=== PATIENT | female | born 2000 | race Caucasian/White ===

== ENCOUNTER 2024-08-09 18:10 | Emergency (ER) | payer MEDICAID, SELFPAY ==
[2024-08-09 18:28] VITALS: BMI 26.6
[2024-08-09 18:31] VITALS: BP 150/93; PULSE 88; RESP 19; TEMP 37.5; O2SAT 98
--- NOTE | 2024-08-09 18:35 | PD.EDRME ---
Rapid Medical Screening Exam RME Arrival date/time: 08/09/24 18:10 23 year old female present to ED for c/o of nipple ring laceration I have greeted and performed a focused initial assessment of this patient. A comprehensive ED assessment and evaluation of the patient, analysis of all test results, and completion of the medical decision making process will be conducted by additional ED providers. Chief Complaint: General Adult/Misc Complain Vital signs: Vital Signs Temperature 99.5 F 08/09/24 18:31 Pulse Rate 88 08/09/24 18:31 Respiratory Rate 19 08/09/24 18:31 Blood Pressure 150/93 H 08/09/24 18:31 Pulse Oximetry (%) 98 08/09/24 18:31 Oxygen Delivery Method Room Air 08/09/24 18:31
--- NOTE | 2024-08-09 20:24 | EDNOTE_ITS ---
ED Wound/Laceration-RME/HPI General Chief Complaint: General Adult/Misc Complain Stated Complaint: RIPPED NIPPLE RING HALF WAY OUT Arrival date/time: 08/09/24 18:10 RME / HPI RME / HPI narrative: 08/09/24 18:10 23 year old female present to ED for c/o of nipple ring laceration I have greeted and performed a focused initial assessment of this patient. A comprehensive ED assessment and evaluation of the patient, analysis of all test results, and completion of the medical decision making process will be conducted by additional ED providers. DR DOMINGUEZ MAIN ED EVALUATION: 23-year-old female patient with pierced nipples complaining of catching her left nipple piercing on a door resulting in a laceration to her left nipple. States she did it this morning but did not have time to seek medical care until now. Related Data Previous Rx's ?Medication ?Instructions ?Recorded naproxen 500 mg tablet (Naprosyn) 500 mg PO BID PRN pain #30 tabs 09/28/20 Allergies Allergy/AdvReac Type Severity Reaction Status Date / Time No Known Allergies Allergy Verified 08/09/24 18:12 Course Course Course Narrative: Recommend patient remove piercing. Plan for wound irrigation, cleansing, and repair with skin adhesive. Procedure wound suture/repair Wound irrigated, cleansed, repaired with skin adhesive, steristrips applied, tolerated well, no complications Quality Measures none Vital Signs Vital signs: Vital Signs Temperature 99.5 F 08/09/24 18:31 Pulse Rate 88 08/09/24 18:31 Respiratory Rate 19 08/09/24 18:31 Blood Pressure 150/93 H 08/09/24 18:31 Pulse Oximetry (%) 98 08/09/24 18:31 Oxygen Delivery Method Room Air 08/09/24 18:31 Wound / Laceration MDM Narrative MDM Narrative:: 23 yo female patient with nipple piercing here for nipple laceration Patient data External records reviewed:: [facility] previous records Clinical information provided by:: patient Social determinants that could affect healthcare access:: none Patient has the following chronic illnesses:: none How is presenting disease/condition affected by chronic disease/condition?: no chronic disease Evaluation data The following diagnostics were reviewed and interpreted by me:: other (specify) (diagnostics not ordered) Lab and/or radiology exams considered but not ordered:: none Interpretation Summary: n/a Medications / Prescriptions Medications or Prescriptions considered but not ordered:: considered Rx antibiotic however wound is clean and there are no signs of infection Medication administrations:: none Consultations Consultation(s) initiated? (list below): No Diagnosis Wound Differential Diagnosis: laceration, abrasion and avulsion of skin Most likely diagnosis given after review of the tests above:: laceration Admission Indicated Admission indicated?: not indicated Admission Request Was there a request for admission?: No Disposition Plan Disposition Plan: Discharge Discharge Attestation Discharge Attestation: The patient and all family members were given an opportunity to ask questions and understood the discharge instructions. Discharge instructions specifically effects, indications for sooner follow up or return to the emergency department, and the expected course of current diagnosis. Patient condition: Stable Discharge Plan Plan Patient Disposition: HOME (Self Care) Prescriptions/Referrals Prescriptions/Med Rec: No Action naproxen [Naprosyn] 500 mg tablet 500 mg PO BID PRN (Reason: pain) Qty: 30 0RF Referrals: Sharath Trujillo MD [Primary Care Provider] - In 1 week Problem List Clinical Impression: Laceration of left breast, Fissure of left nipple Patient/Caregiver Discharge Instructions Education Materials: ED Laceration: Skin Adhesive Print Language: Russian Stand Alone Forms: [employer] Award Info., Patient Portal Info Letter
--- NOTE | 2024-08-09 20:56 | PC.NURSE ---
pt. presents with left nipple lac after nipple ring got caught and lac right side of nipple. Nipple is 2cm wide, ring is a niraj that goes across nipple from right to left. Right side lac 1cm long. Provider asks pt, to remove ring, nipple irrigated and glue, steri strips used. dressing placed. instructions given
== END 2024-08-09 21:00 | disposition home or self-care (01) ==
PROVIDERS: Emergency Provider Emergency Medicine; PCP Family Medicine
DX: S21.012A Laceration without foreign body of left breast, initial encounter (principal); N64.0 Fissure and fistula of nipple; W45.8XXA Other foreign body or object entering through skin, initial encounter
CPT/HCPCS: 12001; 99283